=== PATIENT | male | born 1985 | race Caucasian/White ===

== ENCOUNTER 2020-05-09 12:08 | Outpatient (REF) | payer SELFPAY ==
[2020-05-11 00:16] LABS: C. trachomatis RNA TMA NOT DETECTED (NOT DETECTED); N. gonorrhoeae RNA TMA NOT DETECTED (NOT DETECTED)
== END 2020-05-09 12:09 | disposition home or self-care (01) ==
LOC: HO.LAB 12:08
PROVIDERS: Visit Provider Nurse Practitioner Family
DX: N50.819 Testicular pain, unspecified (principal); R10.30 Lower abdominal pain, unspecified; Z11.8 Encounter for screening for other infectious and parasitic diseases; Z11.3 Encounter for screening for infections with a predominantly sexual mode of transmission
CPT/HCPCS: 36415; 87491; 87591

== ENCOUNTER 2021-04-26 11:04 | Outpatient (REF) | payer OTHER, SELFPAY ==
[2021-04-26 13:57] LABS: Appearance Urine CLEAR; Color Urine YELLOW; Glucose Urine UA NEG (NEG); Leukocyte Esterase Urine NEG (NEG); Nitrite Urine NEG (NEG); Specific Gravity - Urine 1.025 (1.005-1.025); Urine Blood NEG (NEG); Urine Ketones 5 MG/DL (NEG); Urine Protein NEG (NEG-TRACE)
[2021-04-26 14:04] LABS: Alanine Aminotransferase 24 U/L (0-40); Albumin Level 4.2 g/dL (3.5-5.0); Alkaline Phosphatase 60 U/L (39-117); Anion Gap 11 (12-20); Aspartate Amino Transferase 14 U/L (5-37); Bilirubin Total 0.8 mg/dL (0.0-1.0); Blood Urea Nitrogen 12 mg/dL (9-16); Calcium 9.8 mg/dL (8.4-10.2); Carbon Dioxide 27 mmol/L (22-29); Chloride 106 mmol/L (96-108); Cholesterol 118 mg/dL; Estimated Glomerular Filt Rate > 60; Glucose Fasting 86 mg/dL (60-99); HDL Cholesterol 37 mg/dL; LDL Cholesterol Calculated 63 mg/dl; Potassium 4.2 mmol/L (3.3-5.1); Sodium 140 mmol/L (135-145); Total Protein 6.8 g/dL (6.5-8.0); Triglycerides 90 mg/dL
[2021-04-26 14:23] LABS: Syphilis Screen Nonreactive (Nonreactive)
[2021-04-26 14:28] LABS: TSH reflex Free T4 0.85 uIU/mL (0.32-4.0)
[2021-04-29 08:04] LABS: HIV AB/AG Nonreactive (Nonreactive); HIV Num 1 0.07 S/CO (0.00-0.99)
== END 2021-04-26 11:05 | disposition home or self-care (01) ==
LOC: HO.HMGCLDS 11:04
PROVIDERS: Visit Provider Family Medicine
DX: Z00.00 Encounter for general adult medical examination without abnormal findings (principal); Z13.220 Encounter for screening for lipoid disorders; Z13.29 Encounter for screening for other suspected endocrine disorder; Z11.4 Encounter for screening for human immunodeficiency virus [HIV]; Z11.3 Encounter for screening for infections with a predominantly sexual mode of transmission
CPT/HCPCS: 36415; 80053; 80061; 81003; 84443; 86780; 87389

== ENCOUNTER 2023-02-17 13:52 | Outpatient (AMB) | payer OTHER, SELFPAY ==
[2023-02-17 14:51] VITALS: BP 116/70; PULSE 69; TEMP 36.5; O2SAT 98; BMI 26.8
--- NOTE | 2023-02-17 14:51 | AM.OFFWIN_ITS ---
Intake Vital Signs 02/17/23 14:51 Height 5 ft 5 in Weight 161 lb BMI 26.8 BP 116/70 Blood Pressure Location Lt brachial Position Sitting Pulse 69 Pulse Source Pulse Oximeter Temp 97.7 F Temp Source Temporal Artery Scan Pulse Oximetry (%) 98 Oxygen Delivery Method Room Air Intake Visit Reasons: EST/skin around eye are burning(lobby) Intake Note: pt is here today for burning around eye started last night Patient Tobacco Use Status: Current everyday Tobacco user Allergies acetaminophen [From Percocet] Allergy (Intermediate, Verified 02/17/23 15:21) rash oxycodone Allergy (Intermediate, Verified 02/17/23 15:21) rash hydrocodone [From Vicodin] Allergy (Mild, Verified 02/17/23 15:21) Rash Medication List - Last Reconciled 02/17/23 by Kulwinder Reynoso MD cetirizine (All Day Allergy (cetirizine)) 10 mg PO DAILY PRN 30 days fluoxetine 40 mg (2 x 20 mg) PO DAILY 30 days hydrocortisone 2.5% 1 appl topical BID PRN nicotine (polacrilex) (Nicorette) 2 mg buccal Q2H PRN 28 days prednisone 60 mg (3 x 20 mg) PO DAILY Do you need a note to return to daycare/school/sports/work: No HPI EST/skin around eye are burning(lobby) HPI Details 37-year-old male presents to the office for a sick visit. Patient is complaining of burning sensation around the eyes, he feels his skin is stretching when he blinks. He also has a few reddened areas on the tips of his fingers. PFSH Family History Father Substance abuse Brother Substance abuse Social History Housing: House Alcohol intake: current Alcohol intake frequency: 0-2 drinks per day Patient Tobacco Use Status: Current everyday Tobacco user Tobacco use type: Pipe e-Cigarette/Vaping Use: Never Used Second Hand Smoke Exposure: No service: No Current occupational status: employed Current occupational exposures/hazards: No Cognitive needs: No Hearing needs: No Vision needs: No Physical Exam Vital Signs: Last Vital Signs Temp 97.7 F 02/17/23 14:51 Pulse 69 02/17/23 14:51 BP 116/70 02/17/23 14:51 Pulse Ox 98 02/17/23 14:51 Oxygen Delivery Method Room Air 02/17/23 14:51 BMI result Body Mass Index 26.8 Skin Other: Face: Heliotrope rash around the eyes, conjunctiva and corneas clear. Right and left hand: Terminal digits: Papular rash with overlying thickening of the skin. Assessment & Plan Assessment & Plan (1) Rash: Code(s): R21 - Rash and other nonspecific skin eruption Plan: Prednisone and hydrocortisone cream prescribed. Blood work to rule out underlying autoimmune disease. Orders: Orders 2 Erythrocyte Sedimentation Rate Today R21 - Rash and other nonspecific skin eruption Complete Blood Count no Diff Today R21 - Rash and other nonspecific skin eruption Basic Metabolic Panel Today R21 - Rash and other nonspecific skin eruption Liver Panel Today R21 - Rash and other nonspecific skin eruption Medications: New prednisone 60 mg (3 x 20 mg) PO DAILY 9 tabs 0RF hydrocortisone 2.5% 1 appl topical BID PRN 20 grams 0RF skin irritation Coding Level of Care Code Est Pt Level 3 (42458) Diagnoses Rash R21
== END 2023-02-17 15:22 | disposition home or self-care (01) ==
PROVIDERS: PCP Family Medicine; Visit Provider Internal Medicine
DX: R21 Rash and other nonspecific skin eruption (principal)
CPT/HCPCS: 99213

== ENCOUNTER 2023-07-03 09:54 | Outpatient (AMB) | payer OTHER, SELFPAY ==
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
[2023-07-03 10:01] VITALS: BP 120/64; PULSE 70; RESP 13; TEMP 36.4; O2SAT 98; BMI 26.7
== END 2023-07-03 11:02 | disposition home or self-care (01) ==
PROVIDERS: PCP Family Medicine; Visit Provider Nurse Practitioner Family
DX: R07.89 Other chest pain (principal); R51.9 Headache, unspecified; F41.8 Other specified anxiety disorders
CPT/HCPCS: 96127; 99214

== ENCOUNTER 2023-07-03 10:55 | Outpatient (REF) | payer OTHER, SELFPAY ==
[2023-07-03 14:38] LABS: MANUAL DIFF FLAG NO
[2023-07-03 14:42] LABS: Basophils Absolute Auto 0.1 X10*3/uL (0.0-0.2); Basophils Percent Auto 1.3 % (0-2); Eosinophils Absolute Auto 0.3 X10*3/uL (0.0-0.4); Eosinophils Percent Auto 3.8 % (0-4); Hematocrit 45.8 % (42.0-52.0); Hemoglobin 15.8 g/dl (14.0-18.0); Imm Gran Abs Auto 0.05 X10*3/uL (0.00-0.03); Imm Gran Pct Auto 0.6 % (0.0-0.4); Lymphocytes Absolute Auto 2.7 X10*3/uL (1.2-4.9); Lymphocytes Percent Auto 33.8 % (20-40); Mean Corpuscular HGB Conc 34.5 g/dl (31.0-36.0); Mean Corpuscular Hemoglobin 31.3 pg (27.0-33.0); Mean Corpuscular Volume 90.9 fL (80.0-98.0); Mean Platelet Volume 10.5 fL (9.4-12.4); Monocytes Absolute Auto 0.8 X10*3/uL (0.1-1.2); Monocytes Percent Auto 9.4 % (2-11); Neutrophils Absolute Auto 4.1 x10*3/uL (2.0-8.3); Neutrophils Percent Auto 51.1 % (45-73); Platelet Count 349 X10*3/uL (160-400); Red Blood Count 5.04 X10*6/uL (4.60-5.80)
[2023-07-03 15:40] LABS: Alanine Aminotransferase 19 U/L (0-40); Albumin Level 4.4 g/dL (3.5-5.0); Alkaline Phosphatase 55 U/L (39-117); Anion Gap 12 (12-20); Aspartate Amino Transferase 14 U/L (5-37); Bilirubin Total 1.2 mg/dL (0.0-1.0); Blood Urea Nitrogen 14 mg/dL (9-16); Calcium 9.7 mg/dL (8.4-10.2); Carbon Dioxide 23 mmol/L (22-29); Chloride 109 mmol/L (96-108); Estimated Glomerular Filt Rate > 60; Glucose Fasting 87 mg/dL (60-99); Sodium 140 mmol/L (135-145); Total Protein 7.2 g/dL (6.5-8.0); Troponin-I High Sensitivity < 2.7 ng/L (<3.5-35.0)
== END 2023-07-03 10:56 | disposition home or self-care (01) ==
LOC: HO.WFDLDS 10:55
PROVIDERS: Visit Provider Nurse Practitioner Family
DX: R07.89 Other chest pain (principal)
CPT/HCPCS: 36415; 80053; 84484; 85025

== ENCOUNTER 2023-12-02 12:14 | Outpatient (AMB) | payer OTHER, SELFPAY ==
--- NOTE | 2023-12-02 12:25 | MHC.OFFWIV ---
Intake Vital Signs 12/02/23 12:26 Height 5 ft 5 in Weight 161 lb 6 oz BMI 26.9 BP 124/80 Blood Pressure Location Rt brachial Position Sitting Pulse 64 Pulse Source Pulse Oximeter Pulse Oximetry (%) 98 Oxygen Delivery Method Room Air Intake Visit Reasons: EP allergic reaction, eyes burning, bumps on face. Intake Note: Patient here for possible allergic reaction, states eyes are burning, bumps on face which has started today. Patient Tobacco Use Status: Current everyday Tobacco user Allergies acetaminophen [From Percocet] Allergy (Intermediate, Verified 12/02/23 12:27) rash oxycodone Allergy (Intermediate, Verified 12/02/23 12:27) rash hydrocodone [From Vicodin] Allergy (Mild, Verified 12/02/23 12:27) Rash HPI HPI Comments History of Present Illness Details he presents to office with ? allergic reaction When he woke up this am he noticed both eyes had crusty eyelids Was able to clean and improved He admits to night sweats at baseline Co-worker noticed puffy eyes today but pt felt well He said sweats easily; baseline ears pads under armpits He said he thinks his sweat is making his eyes puffy No discharge throughotu day States no itching to eyes but states he has some burning to eyes bilaterally; describes as dry He denies CP or SOB No throat tightness or tongue swelling He tried a cream around the eyes without relief PFSH Medical History No pertinent past medical history Surgical History No pertinent past surgical history Family History Father Substance abuse Brother Substance abuse Social History Housing: Apartment Alcohol intake: current Alcohol intake frequency: 0-2 drinks per day Patient Tobacco Use Status: Current everyday Tobacco user Tobacco use type: Pipe e-Cigarette/Vaping Use: Never Used Second Hand Smoke Exposure: No service: No Current occupational status: employed 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 Current occupational exposures/hazards: No Cognitive needs: No Hearing needs: No Vision needs: No Review of Systems Const Denies chills, Denies fatigue and Denies fever(s) Eyes Denies blurry vision, Denies change in vision, Denies diplopia, Reports eye discharge, Reports dry eyes, Reports irritation, Reports itchy eyes and Reports photophobia ENT Denies sore throat, Denies throat swelling and Denies tongue swelling Card Denies chest pain and Denies dyspnea Resp Denies cough and Denies dyspnea Skin/Breast Reports erythema and Reports rash Endo Denies fatigue Aller/Immun Reports itchy eyes, Denies throat swelling and Denies tongue swelling Physical Exam Vital Signs: Last Vital Signs Pulse 64 12/02/23 12:26 BP 124/80 12/02/23 12:26 Pulse Ox 98 12/02/23 12:26 Oxygen Delivery Method Room Air 12/02/23 12:26 BMI result Body Mass Index 26.9 General: Non-toxic, NAD. Speaking full sentences. Skin: Warm dry throughout. Pt has bilateral periorbital dry erythematous skin with slight edema to upper eyelids and minimal to lower lids. No lesions or drainage. No other facial edema or rash to neck, arms Eye: EOMI. No conjunctival erythema or drainage. + PERRL HENT: Airway patent. Uvula midline. No pharyngeal erythema or edema. 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 No tongue edema Bilateral canals clear. TM non-erythematous, non-bulging. No TM perforation or hemotympanum noted. Respiratory: CTA bilaterally. No wheezes, rales or rhonchi Cardiac: RRR. No murmur MSK: Full ROM extremities. Neurology: A/O. No aphasia or facial droop. Gait without abnormality Psych: Good mood and affect Eyes Direct Ophthalmoscopy: photophobia Assessment & Plan Assessment & Plan (1) Periorbital dermatitis: Code(s): L30.9 - Dermatitis, unspecified Plan: Pt seen and evaluated. Non-toxic appearing Keep area dry Take oral prednisone with food (avoid alcohol, or nsaids. Take with food) Any throat tightness, worsening facial edema, SOB etc go to ER Patient gave verbal understanding and had no additional questions or concerns at time of discharge All questions answered Medications: New prednisone 40 mg (2 x 20 mg) PO DAILY 8 tabs 0RF 4 days Coding Level of Care Code Est Pt Level 3 (01423) Diagnoses Periorbital dermatitis L30.9
[2023-12-02 12:26] VITALS: BP 124/80; PULSE 64; O2SAT 98; BMI 26.9
== END 2023-12-02 12:46 | disposition home or self-care (01) ==
PROVIDERS: PCP Family Medicine; Visit Provider Physician Assistant
DX: L30.9 Dermatitis, unspecified (principal)
CPT/HCPCS: 99213